=== PATIENT | female | born 1940 | race Caucasian/White ===

== ENCOUNTER 2025-03-14 11:44 | Emergency (ER) | payer MEDICARE, MEDICAID, SELFPAY ==
[2025-03-14 11:45] VITALS: BP 172/131
--- NOTE | 2025-03-14 11:55 | ED.GENMED ---
History of Present Illness
General
Chief Complaint: CODE
Source: ambulance crew
Exam Limitations: clinical condition
Time Seen by Provider: 03/14/25 11:55
Nursing documentation reviewed up to this point in time: agreed with
History of Present Illness
History of Present Illness:
senior care patient seen normal at 10:40 AM few minutes later found in cardiac arrest CPR started EMS was called asystole multiple rounds of epi, worked for about 20 to 30 minutes, called medical command with the plan for field pronouncement
apparently she was unhooked from the monitor and took breath had a faint pulse 2 more rounds of epi transported here in full cardiac arrest where she was DOA
Past History
Past History
ED Past Medical History: Other
ED Past Surgical History: Other
Social History
Alcohol: Other
Drug: Other
Personal: Other
Living: other
Employment: Other
Family History
Family History: Unable to obtain
Review of Systems
Review of Systems
Unable to obtain full review of systems at this time due to: intubated
All Other Systems: Not applicable
Phy Exam
Physical Exam
Physical Exam:
Physical Exam
General: Intubated female 3 TGCS
Neck: Pupils 5 OU
Heart: No pulse
Lungs: No spontaneous respiratory
Abdomen: Feeding tube wearing a diaper
Neuro: 3T
Skin: no rash
Psychiatric: Unable to assess
Extremities: Left lower extremity IO line
Course
Orders/Labs/Results
Orders:
Orders
03/14/25 11:45
EPINEPHrine [Adrenalin 1 mg/10 ml] 1 mg .ROUTE .STK-MED ONE
Sodium Bicarbonate 50 meq .ROUTE .STK-MED ONE
Vital Signs
Initial and Last Documented VS:
Initial Vital Signs
BP
172/131
03/14/25 11:45
Last Documented Vital Signs
BP Pulse Ox
172/131 60
03/14/25 11:45 03/14/25 11:58
MDM/Problems Addressed
Differential Diagnosis Includes:
PEA arrest patient DOA
MDM/Problems Addressed:
PEA arrest
*Pulse Oximetry
SaO2: 60
Patient hypoxic: yes
*Patient Appointment Coordinator Interpretation
Rate: other
Interpretation: abnormal
Heart Rate: 0
Rhythm: other (Asystole)
*Critical Care Note
Total Time (30-74mins, 75-104mins- exclusive of procedures): 8
Update Note
Update Note:
Time of 11:50 AM
Son updated medical attendant called
Reviewed with son patient is had a downward spiral since a fall 8 or 9 months ago had a subdural at [facility] she has had fluid on her lungs that required tapping,
Nothing suspicious here is certified and pronounced the patient
ED Attending Note
-
Portions of this chart may have been created with voice recognition software.� Occasional wrong word or��sound alike� substitutions may have occurred due to the inherent limitations of voice recognition software.
Discharge Plan
Departure
Patient Disposition:
Condition: Critical
Covid-19: Not Applicable
Discharge Problem:
due to respiratory arrest
Prescriptions:
No Action
Unobtainable
0
Referrals:
Christos Ovalle DO [Family Provider, Family Practice]
Interventions
Interventions:
*Nursing Disposition Last Done: 03/14/25 12:00
Discharge Date and Time
Print Language: MAORI
--- NOTE | 2025-03-14 12:37 | EDRN ---
[facility] called, spoke with Nichelle. Pt is not a candidate.
== END 2025-03-14 14:27 | disposition expired ==
LOC: EMR 11:44
PROVIDERS: EMERGENCY PHYSICIAN Emergency Medicine; FAMILY PHYSICIAN Student in an Organized Health Care Education/Training Program
DX: I46.9 Cardiac arrest, cause unspecified (principal)
CPT/HCPCS: 99282; 92950